=== PATIENT | male | born 1950 | race Caucasian/White ===

== ENCOUNTER 2017-05-04 10:56 | Day surgery (SDC) | payer BC ==
[~2017-05-04 10:56] MED LIST: Lactated Ringers 1,000 ML IV SCH
[2017-05-04] MEDS ORDERED: Lidocaine 2% 5 ML SDV ONE (12:02)
[2017-05-04] MEDS ORDERED: Midazolam 1 MG/ML 2 ML SDV ONE (12:02)
[2017-05-04] MEDS ORDERED: Propofol 200 MG/20 ML SDV ONE ×2 (12:02→13:05)
[2017-05-04] MEDS ORDERED: fentaNYL 100 MCG/2 ML SDV ONE (12:04)
--- NOTE | 2017-05-04 12:30 | PCM.PREANE ---
Preanesthetic Assessment - Anesthesia/Transfusion/Family Hx Anesthesia History: Prior Anesthesia Without Reaction Family History of Anesthesia Reaction: No Transfusion History: No Prior Transfusion(s) Intubation History: Unknown - Review of Systems General: No Symptoms Pulmonary: No Symptoms Cardiovascular: No Symptoms Gastrointestinal: No Symptoms, Other (screening) Neurological: No Symptoms Other: Reports: None - Physical Assessment Height: 1.75 m Weight: 88.904 kg ASA Class: 2 Mental Status: Alert & Oriented x3 Airway Class: Mallampati = 2 Dentition: Reports: Normal Dentition, [place](s) (x1 upper front (left)) Thyro-Mental Finger Breadths: 2 Mouth Opening Finger Breadths: 2 ROM/Head Extension: Full Lungs: Clear to Auscultation, Normal Respiratory Effort Cardiovascular: Regular Rate, Regular Rhythm - Allergies Allergies/Adverse Reactions: Allergies Allergy/AdvReac Type Severity Reaction Status Date / Time Sulfa (Sulfonamide Allergy Swelling Verified 04/30/17 12:38 Antibiotics) - Blood Blood Available: No - Anesthesia Plan Pre-Op Medication Ordered: None - Acknowledgements Anesthesia Type Planned: MAC Pt an Appropriate Candidate for the Planned Anesthesia: Yes Alternatives and Risks of Anesthesia Discussed w Pt/Guardian: Yes Pt/Guardian Understands and Agrees with Anesthesia Plan: Yes PreAnesthesia Questionnaire HEENT History: Reports: Other (See Below) Other HEENT History: wears glasses Cardiovascular History: Reports: CAD, High Cholesterol, Hypertension, Stents ( x1 '12 no problems since) Gastrointestinal History: Reports: Other (See Below) Other Gastrointestinal History: occasional heartburn - Past Surgical History Head Surgeries/Procedures: Reports: None Cardiovascular Surgical History: Reports: Coronary Artery Stent (x1 '12) - SUBSTANCE USE Smoking Status *Q: Current Every Day Smoker Tobacco Use Within Last Twelve Months: Cigarettes Recreational Drug Use History: No - HOME MEDS Home Medications: Home Meds Lisinopril [Zestril] 10 mg PO DAILY 05/28/13 [History] Metoprolol Tartrate 50 mg PO DAILY 05/28/13 [History] Ascorbate Calcium [Vitamin C] 500 mg PO DAILY 04/30/17 [History] Aspirin 325 mg PO DAILY 04/30/17 [History] Calcium Polycarbophil [Fibercon] 1 tab PO DAILY 04/30/17 [History] Cholecalciferol (Vitamin D3) [Vitamin D3] 1,000 units PO DAILY 04/30/17 [History ] Cyanocobalamin (Vitamin B12) [Vitamin B12] 1,000 mcg PO ASDIRECTED 04/30/17 [ History] Fish Oil/[place]-3 Fatty Acids [Fish Oil 1,000 MG] 2 tab PO DAILY 04/30/17 [ History] Multivitamin [Multivitamins] 1 tab PO DAILY 04/30/17 [History] atorvaSTATin Calcium [Atorvastatin Calcium] 10 mg PO DAILY 04/30/17 [History] - CURRENT (IN HOUSE) MEDS Current Meds: Current Medications Lactated Ringer's (Ringers, Lactated) 1,000 mls @ 125 mls/hr IV ASDIRECTED MARY Discontinued Medications Fentanyl (Sublimaze) Confirm Administered Dose 100 mcg .ROUTE .STK-MED ONE Stop: 05/04/17 12:05 Lidocaine (Xylocaine-Mpf 2%) Confirm Administered Dose 10 ml .ROUTE .STK-MED ONE Stop: 05/04/17 12:03 Midazolam HCl (Versed 1 Mg/Ml) Confirm Administered Dose 2 mg .ROUTE .STK-MED ONE Stop: 05/04/17 12:03 Propofol (Diprivan 20 Ml) Confirm Administered Dose 400 mg .ROUTE .STK-MED ONE Stop: 05/04/17 12:03
--- NOTE | 2017-05-04 13:19 | PCM.OPNOTE ---
- General Post-Op/Procedure Note Date of Surgery/Procedure: 05/04/17 Operative Procedure(s): Colonoscopy with cold sigmoid and rectal polypectomies Pre Op Diagnosis: Desire for colorectal cancer screening Post-Op Diagnosis: Distal sigmoid colon polyp. Rectal polyps. Anesthesia Technique: MAC (ASA II) Primary Surgeon: Solomon Buckner Condition: Good Free Text/Narrative:: Dictation [id number] CPT CODE [id number]
[2017-05-04] MEDS ORDERED: Lactated Ringers 1,000 ML IV SCH (13:30)
--- NOTE | 2017-05-04 13:52 | OR ---
SURGEON: Solomon Buckner M.D. DATE OF PROCEDURE: 05/04/2017 OPERATION PERFORMED: Colonoscopy with cold distal sigmoid and rectal polypectomy. ANESTHESIA: MAC. ASA CLASSIFICATION: II. PREOPERATIVE DIAGNOSIS: Desire for colorectal cancer screening. POSTOPERATIVE DIAGNOSIS: Sigmoid and rectal polyps. DESCRIPTION OF PROCEDURE: The patient was taken to the endoscopy room and positioned on the endoscopy table in the left lateral decubitus position. Time-out was called for appropriate identification of the patient and procedure. Monitored anesthesia care was provided. The colonoscope was inserted into the rectum and advanced without difficulty to the cecum where the colonoscope was retroflexed to visualize the ascending colon from below. The colonoscope was then straightened and slowly withdrawn. The cecum, ascending colon, hepatic flexure, transverse colon, splenic flexure, and descending colon showed no tumors, polyps, diverticula, or angiodysplastic changes. There was no evidence of inflammatory bowel disease. Once the colonoscope was withdrawn to the distal sigmoid colon, small polyp was encountered. This was removed with the cold biopsy forceps. As the colon was withdrawn to the proximal rectum, several more polyps were encountered and removed with cold biopsy forceps. These were all in the same approximate area and sent as one specimen. Once the colonoscope was withdrawn to the rectum, it was retroflexed to visualize the anal orifice from above. No tumors or polyps were seen, and there were no acute hemorrhoidal changes. The colonoscope was then straightened and slowly withdrawn aspirating the rectum as the scope was withdrawn. It should also be noted that there were no diverticular changes noted anywhere throughout the sigmoid colon. The patient tolerated the procedure well and was taken to recovery room in satisfactory condition. JATIN JOHNSON /[id number]
== END 2017-05-04 14:00 | disposition home or self-care (01) ==
LOC: MW.SDS 10:56
PROVIDERS: ATTEND Surgery
DX: Z12.11 Encounter for screening for malignant neoplasm of colon (principal); D12.5 Benign neoplasm of sigmoid colon; D12.8 Benign neoplasm of rectum; I25.10 Atherosclerotic heart disease of native coronary artery without angina pectoris; I10 Essential (primary) hypertension; E78.00 Pure hypercholesterolemia, unspecified; F17.200 Nicotine dependence, unspecified, uncomplicated; Z79.82 Long term (current) use of aspirin; Z79.899 Other long term (current) drug therapy; Z88.2 Allergy status to sulfonamides; Z95.5 Presence of coronary angioplasty implant and graft
CPT/HCPCS: 45380; J2250; J3010; J7120; 00812; 88305; J2704

== ENCOUNTER 2024-03-21 07:35 | Day surgery (SDC) | payer MEDICARE, BC ==
[2024-03-21] MEDS: Lactated Ringers 1,000 ML IV SCH (07:56)
[2024-03-21] MEDS ORDERED: Lidocaine 2% 5 ML SDV ONE (07:57)
[2024-03-21] MEDS ORDERED: propofoL 500 MG/50 ML 50 ML ONE (07:57)
[2024-03-21] MEDS ORDERED: Lactated Ringers 1,000 ML IV SCH (09:15)
== END 2024-03-21 10:00 | disposition home or self-care (01) ==
LOC: MW.SDS 07:35
PROVIDERS: ATTEND Surgery
DX: Z12.11 Encounter for screening for malignant neoplasm of colon (principal); K57.30 Diverticulosis of large intestine without perforation or abscess without bleeding; E78.00 Pure hypercholesterolemia, unspecified; I25.10 Atherosclerotic heart disease of native coronary artery without angina pectoris; I10 Essential (primary) hypertension; F17.210 Nicotine dependence, cigarettes, uncomplicated; Z88.2 Allergy status to sulfonamides; Z79.82 Long term (current) use of aspirin; Z79.899 Other long term (current) drug therapy; Z86.0100 Personal history of colon polyps, unspecified
CPT/HCPCS: 00812; 99100; J2704; J7120